=== PATIENT | female | born 1990 | race Asian ===

== ENCOUNTER → 2018-06-21 | Outpatient (CLI) | payer OTHER | END | disposition home or self-care (01) | LOC: C.LAB1850 09:57 | PROVIDERS: ATTEND Obstetrics & Gynecology | DX: Z34.02 Encounter for supervision of normal first pregnancy, second trimester (principal) ==

== ENCOUNTER 2018-11-27 02:53 | Inpatient (IN) ==
[2018-11-27] MEDS ORDERED: OXYTOCIN 30 UNITS/500 ML BAG IV PRN ×3 (03:53→15:49)
[2018-11-27] MEDS ORDERED: LACTATED RINGER'S 1,000 ML IV PRN ×3 (03:53→10:42)
[2018-11-27 04:12] LABS: Hematocrit (blood only) 32.8 % (37-47); Hemoglobin 10.6 g/dL (12.0-16.0); Mean Corpuscular Volume 88.6 fL (80-100); Mean Platelet Volume 9.9 fL (7.4-10.4); Platelet Count 230 K/uL (130-400); RDW Coefficient of Variation 13.6 % (11.5-14.5); RDW Standard Deviation 43.4 fL (36.4-46.3); White Blood Count 8.09 K/uL (4.8-10.8)
[2018-11-27 04:57] LABS: Mean Corpuscular Hgb Conc 32.3 g/dL (32-36)
--- NOTE | 2018-11-27 06:32 | History & Physical Report ---
Date of Service November 27, 2018 Assessment & Plan (1) Supervision of normal intrauterine in primigravida: -Patient observed for several hours with spontaneous rupture of membranes , no regular contractions. -Tracing is reassuring -We will initiate Pitocin per induction protocol -Anticipate vaginal delivery History of Present Illness Chief Complaint: Spontaneous rupture of membranes Primary Care Provider: Roverto Gardner DO The patient is a 28-year-old 1 para 0 with an EDC of 02 December at 39+ weeks gestational age who presents with spontaneous rupture membranes. Patient states membranes ruptured at approximately 0230 hrs. on day of admission. She describes the fluid is clear. She denies contractions. The patient has had a benign course. Her blood type is A+, antibody negative, rubella immune , hepatitis B negative, she had a negative cell free DNA screening, she had a normal 1 hour Glucola x2, and she had a negative third trimester beta strep culture. Allergies Allergy/AdvReac Type Severity Reaction Status Date / Time No Known Allergies Allergy Unverified 11/27/18 03:21 Home Medications Home Medications Medication Instructions Recorded Confirmed Type vit-iron fum-folic ac 1 tab PO DAILY 11/27/18 11/27/18 History [ Vitamin] Patient History Medical History No significant past medical history Social History marital status: Current Living Situation: Spouse Other Information That Helps Us Care for You: No Feels Safe at Home: Yes Safety Concerns: Feels Safe At This Time Smoking Status: Never smoker Second Hand Exposure: No Hx Alcohol Use: No Hx Substance Use: No Beliefs That Will Affect Care: None Preferred Language: Yi Communication Ability: Effective 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 Physical Exam 2 Vital Signs (Past 24 Hours): Last Vital Signs Temp 36.8 C 11/27/18 06:18 Pulse 74 11/27/18 06:18 Resp 18 11/27/18 06:18 BP 106/64 11/27/18 06:18 Constitutional: WD/WN, vitals as above Respiratory: Auscultation: lungs clear to auscultation bilaterally Cardiovascular: RRR, no murmur, no edema Extremities: no calf tenderness Gastrointestinal (Abdomen): Gravid, vertex, positive heart tones, no palpable contractions, estimated weight of 6-1/2 pounds Genitourinary: Manual OB Exam: + cervical dilation 2 cm, + cervical effacement 90%, + station -1 and + amniotic fluid clear OB Exam Monitor Tracing: + external FHT monitor used and + category I
[2018-11-27] MEDS: LACTATED RINGER'S 1,000 ML IV SCH ×2 (06:51→09:35)
[2018-11-27] MEDS ORDERED: BUPIVACAINE 0.25% 30 ML VIAL ONE (08:48)
[2018-11-27] MEDS ORDERED: ePHEDrine sulfate 50 MG/ML AMP ONE (08:49)
[2018-11-27] MEDS ORDERED: fentaNYL citrate 100 MCG/2 ML VIAL ONE (08:49)
[2018-11-27] MEDS ORDERED: fentaNYL 2MCG/ML ROPIV 1.25MG/ML 100 ML BAG EPI ONE (08:50)
[2018-11-27] MEDS ORDERED: LIDOCAINE HCL 2% MPF (LOCAL) 5 ML VIAL INFIL ONE (09:36)
--- NOTE | 2018-11-27 10:40 | Anesthesiology Consultation ---
Date of Service November 27, 2018 Assessment & Plan Chart Review Chart Review: Acceptable Risk for Surgery Consults Requested none ASA [id number] Proposed Anesthesia Anesthesia Type: Labor Epidural Risk / Benefits Reviewed With: PT / POA / Parent / Guardian History Height/Weight Height: 5 ft 2 in Weight: 64.864 kg Allergies Allergy/AdvReac Type Severity Reaction Status Date / Time No Known Allergies Allergy Unverified 11/27/18 03:21 Medications Home Medications Medication Instructions Recorded Confirmed Last Taken vit-iron fum-folic ac 1 tab PO DAILY 11/27/18 11/27/18 11/26/18 20:00 [ Vitamin] Active Medications Generic Name Dose Route Start Last Admin Trade Name Freq PRN Reason Stop Dose Admin Lactated Ringer's 1,000 mls @ 125 mls/hr 11/27/18 04:00 11/27/18 09:49 Lr IV 11/29/18 03:59 125 mls/hr .Q8H JANNET Infusion Oxytocin 30 units in 500 mls @ 7 mls/hr 11/27/18 06:23 11/27/18 08:34 Pitocin IV 11/29/18 06:22 0.42 units/hr .Q24H PRN 7 mls/hr Labor Induction/Augmentation Titration Protocol 0.42 UNITS/HR Past Medical History Medical History No significant past medical history Social History Smoking Status: Never smoker Hx Alcohol Use: No Hx Substance Use: No substance use type: does not use Physical Exam Vital Signs Last Vital Signs Temp 36.5 C 11/27/18 08:49 Pulse 90 11/27/18 10:36 Resp 20 11/27/18 08:49 BP 101/57 L 11/27/18 10:25 Pulse Ox 100 11/27/18 10:36 Testing Laboratory Results 11/27/18 04:02
[2018-11-27] MEDS ORDERED: NALOXONE HCL 1 MG in SODIUM CHLORIDE 0.9% 1000ML 1,000 ML IV PRN (10:42)
[2018-11-27] MEDS ORDERED: NALOXONE HCL 0.4 MG/1 ML VIAL/CARP IV PRN (10:42)
[2018-11-27] MEDS ORDERED: ONDANSETRON INJ 2 MG/ML 2 ML VIAL IV PRN (10:42)
[2018-11-27] MEDS ORDERED: fentaNYL 2MCG/ML ROPIV 1.25MG/ML 100 ML BAG EPI PRN (10:42)
[2018-11-27] MEDS ORDERED: ePHEDrine sulfate 50 MG/ML AMP IV PRN (10:42)
[2018-11-27] MEDS ORDERED: NALBUPHINE HCL INJ 10 MG/ML AMP IV PRN (10:42)
[2018-11-27] MEDS ORDERED: DiphenhydrAMINE HCL 50 MG/ML VIAL IV PRN (10:42)
[2018-11-27] MEDS ORDERED: ACETAMINOPHEN W/CODEINE #3 1 TAB PO PRN (15:49)
[2018-11-27] MEDS ORDERED: SUPERCREAM 0.870% 15 GM JAR EXT PRN (15:49)
[2018-11-27] MEDS ORDERED: HYDROCORTISONE ACETATE 25 MG SUPP PR PRN (15:49)
[2018-11-27] MEDS ORDERED: DIPHTHERIA/TETANUS/PERTUSSIS 0.5 ML SYR/VIAL IM ONE (15:49)
[2018-11-27] MEDS ORDERED: ACETAMINOPHEN 325 MG TAB PO PRN (15:49)
[2018-11-27] MEDS ORDERED: BENZOCAINE 20% AER SPR 82.5 GM CAN EXT PRN (15:49)
[2018-11-27 15:53] LABS: Base Excess Cord Venous Blood -0.5 mEq/L (-7.7-1.9); Cord Venous Blood HCO3 25 mmol/L (18.4-26.8); Cord Venous Blood PCO2 46 mmHg (30.4-57.2); Cord Venous Blood PO2 25 mmHg (14.1-43.3); Cord Venous Blood pH 7.36 (7.20-7.44); O2 Saturation Cord Venous Bld < 60.0 % (<68)
--- NOTE | 2018-11-27 16:57 | Anesthesia Procedure Note ---
Date of Service November 27, 2018 Anesthesia Post Epidural Note Vital Signs Vital Signs: Temp Pulse Resp BP Pulse Ox 11/27/18 16:50 129 H 96/68 L 11/27/18 16:35 108 H 20 91/58 L 11/27/18 16:20 95 H 89/55 L 11/27/18 16:05 106 H 20 104/44 L 11/27/18 15:55 112 H 82/48 L 11/27/18 15:50 18 11/27/18 15:35 71 18 90/55 L 11/27/18 15:20 79 18 102/59 L 11/27/18 15:05 81 18 98/58 L 11/27/18 14:55 80 87/50 L 11/27/18 14:46 92 H 92 11/27/18 14:41 100 H 99 11/27/18 14:40 84 103/57 L 11/27/18 14:36 80 97 11/27/18 14:31 76 97 11/27/18 14:27 81 100/55 L 11/27/18 14:26 91 H 96 11/27/18 14:21 89 97 11/27/18 14:16 106 H 99 11/27/18 14:11 89 96 11/27/18 14:10 106 H 151/125 H 11/27/18 14:06 80 96 11/27/18 14:01 89 97 11/27/18 14:00 11/27/18 13:56 78 108/53 L 98 11/27/18 13:51 77 97 11/27/18 13:48 98 H 91 11/27/18 13:46 77 97 11/27/18 13:41 104 H 98 11/27/18 13:40 79 99/57 L 11/27/18 13:36 98 H 98 11/27/18 13:31 109 H 99 11/27/18 13:30 20 11/27/18 13:26 82 110/53 L 99 11/27/18 13:21 78 99 11/27/18 13:16 90 93 11/27/18 13:11 81 98 11/27/18 13:09 121 H 105/53 L 11/27/18 13:08 85 91 11/27/18 13:06 92 H 99 11/27/18 13:01 82 99 11/27/18 13:00 20 11/27/18 12:57 37.1 C 20 11/27/18 12:56 83 104/57 L 99 11/27/18 12:51 84 99 11/27/18 12:47 87 92 11/27/18 12:46 87 96 11/27/18 12:41 79 99 11/27/18 12:40 89 114/57 L 11/27/18 12:36 114 H 100 11/27/18 12:30 86 20 99 11/27/18 12:26 103 H 99 11/27/18 12:25 81 104/56 L 11/27/18 12:21 85 99 11/27/18 12:16 99 H 100 11/27/18 12:06 89 100 11/27/18 12:01 83 100 11/27/18 12:00 83 20 107/63 99 11/27/18 11:56 85 99 11/27/18 11:55 88 104/61 11/27/18 11:51 90 100 11/27/18 11:46 89 99 11/27/18 11:41 83 104/57 L 99 11/27/18 11:36 85 100 11/27/18 11:31 82 20 100 11/27/18 11:30 20 11/27/18 11:26 84 100 11/27/18 11:25 79 101/59 L 11/27/18 11:21 83 100 11/27/18 11:16 80 100 11/27/18 11:15 20 11/27/18 11:11 80 99 11/27/18 11:10 81 106/61 11/27/18 11:06 82 100 11/27/18 11:01 86 99 11/27/18 11:00 36.6 C 20 11/27/18 10:56 93 H 98/53 L 100 11/27/18 10:51 93 H 100 11/27/18 10:46 84 99 11/27/18 10:41 85 20 99 11/27/18 10:40 83 109/59 L 11/27/18 10:36 90 100 11/27/18 10:31 86 20 100 11/27/18 10:26 88 99 11/27/18 10:25 86 101/57 L 11/27/18 10:21 92 H 99 11/27/18 10:16 92 H 20 99 11/27/18 10:11 93 H 100 11/27/18 10:10 86 101/58 L 11/27/18 10:06 92 H 99 11/27/18 10:01 94 H 20 99 11/27/18 09:56 90 100 11/27/18 09:54 88 101/61 11/27/18 09:52 95 H 104/63 11/27/18 09:51 91 H 99 11/27/18 09:50 89 100/60 11/27/18 09:48 86 105/63 11/27/18 09:46 94 H 20 101/66 99 11/27/18 09:44 88 99/57 L 11/27/18 09:42 88 106/58 L 11/27/18 09:41 96 H 99 11/27/18 09:40 87 98/56 L 11/27/18 09:38 90 20 107/60 11/27/18 09:36 93 H 104/58 L 100 11/27/18 09:34 86 98/55 L 11/27/18 09:32 100 H 107/58 L 11/27/18 09:31 100 H 100 11/27/18 09:30 88 98/58 L 11/27/18 09:28 86 105/62 11/27/18 09:26 92 H 20 101/62 100 11/27/18 09:23 74 99/60 L 11/27/18 09:21 79 100 11/27/18 09:16 83 99 11/27/18 09:11 82 95 11/27/18 09:10 83 94 11/27/18 09:06 80 96 11/27/18 09:01 82 99 11/27/18 09:00 82 92 11/27/18 08:56 78 97 11/27/18 08:52 84 94 11/27/18 08:51 85 94 11/27/18 08:49 36.5 C 20 11/27/18 08:48 81 103/65 11/27/18 07:59 77 100/64 11/27/18 06:55 36.9 C 83 20 107/68 11/27/18 06:18 36.8 C 74 18 106/64 11/27/18 05:32 36.3 C L 18 11/27/18 03:13 36.5 C 84 18 114/72 Pain Intensity Abdomen: Pain Intensity: 3 Notes Mental Status: alert / awake / arousable and participated in evaluation Nausea / Vomiting: adequately controlled Pain: adequately controlled Airway Patency, RR, SpO2: stable & adequate BP & HR: stable & adequate Hydration State: stable & adequate Neuraxial Anesthesia: was administered and sensory block is resolving Anesthetic Complications: no major complications apparent and Pt Satisfied with anesthetic care Epidural: Removed without complications and With tip intact
--- NOTE | 2018-11-27 19:28 | Delivery Summary ---
DATE OF OPERATION: 11/27/2018 FINDINGS: Viable female with Apgars of 8 and 9. Baby delivered over midline episiotomy with left sulcus tear and third-degree extension by vacuum extraction for maternal exhaustion. Cord gases, cord blood samples obtained. Placenta delivered spontaneously. Lacerations repaired with 4-0, 2-0 Vicryl in routine fashion. Estimated blood loss was 300 mL LABOR NOTE: The patient is a 28-year-old 1, para 0 with an EDC of 12/02/2018 at 39 and 1+ weeks gestational age who presented to Labor and Delivery with spontaneous rupture of membranes. The patient states membranes ruptured at approximately 0230 on the day of admission. She described the fluid as clear. She denied contractions or vaginal bleeding. The patient has had a benign course. Her blood type is A positive, antibody negative, rubella immune, hepatitis B negative. She had a negative cell free DNA screening, she had normal 1 hour Glucola x2 and a negative third trimester beta strep culture. Upon admission, the patient was noted to be 3 cm dilated, 90% effaced and -2 station. She was observed for several hours with no uterine activity appreciated. Pitocin augmentation was initiated to start labor. Shortly thereafter, the patient became uncomfortable and anesthesia was consulted and an epidural was placed. Over the next 8 hours, the patient progressed to full dilatation and began her second stage. The patient pushed for two and a half hours bringing the vertex down to a +3 station. At this point, she was exhausted and could no longer push effectively. Verbal consent was obtained for a vacuum delivery. Bladder was drained of any residual urine. Vacuum was placed and over the next 2 contractions with 1 pop off, the baby was delivered over a midline episiotomy. Cord was clamped and cut. Cord gases, cord blood samples obtained. Placenta was delivered spontaneously. Inspection of the perineum showed a left sulcus tear in the vagina as well as a third-degree extension. The edges of the sphincter muscle were isolated and reapproximated with 3 [id number] 2-0 Vicryl stitches. The sulcus tear was closed with a running 4-0 Vicryl and then the episiotomy was closed with 4-0 and 2-0 Vicryl in routine fashion. Estimated blood loss for the procedure was 300 mL. Sponge and needle count were correct. I attest to the content of the Intraoperative Record and any orders documented therein. Any exception s are noted below.
[2018-11-27] MEDS: DOCUSATE SODIUM 100 MG CAP PO SCH (20:47)
[2018-11-27] MEDS: IBUPROFEN 600 MG TAB PO PRN (20:48)
[2018-11-28] MEDS: IBUPROFEN 600 MG TAB PO PRN ×5 (01:04→23:54)
[2018-11-28 06:03] LABS: Hematocrit (blood only) 27.5 % (37-47); Mean Corpuscular Hgb Conc 32.7 g/dL (32-36); Mean Corpuscular Volume 87.3 fL (80-100); Platelet Count 199 K/uL (130-400); RDW Standard Deviation 43.6 fL (36.4-46.3); Red Blood Count 3.15 M/uL (4.2-5.4); White Blood Count 14.51 K/uL (4.8-10.8)
--- NOTE | 2018-11-28 06:14 | Obstetrical Progress Note ---
Date of Service <Handy Henao MD - Last Filed: 11/28/18 06:13> November 28, 2018 Assessment & Plan <Handy Henao MD - Last Filed: 11/28/18 06:13> (1) Normal spontaneous vaginal delivery: Alesia Marshall is a 28yo G1PO who presented with SROM now PPD#1 after . - She is A+, AB-, RI, Hep B- - Having some trouble with breast feeding latch, + nurse counseling - Feels well today. Eating well, voiding well. Encourage ambulation. - Pain well controlled with ibuprofen 600mg Q4H PRN. - Routine post care - Anticipate discharge on PPD#2 to 6 week followup with . <Rex Moreno Jr, MD, FACOG - Last Filed: 11/28/18 07:02> (1) Normal spontaneous vaginal delivery: Subjective <Handy Henao MD - Last Filed: 11/28/18 06:13> Ambulation: limited ambulation (PPD#1, has mostly been resting in bed. Up to bathroom OK.) Voiding: no voiding problems Passing Gas:: No Diet Tolerance:: regular diet Lochia:: Moderate Feeding Type:: breast feeding (Having difficulty with latch) Current Pain Level(1-10): 5 (improved with motrin) Review of Systems Denies fever, chills, sweats Denies shortness of breath, difficulty breathing, chest pain, palpitations, chest pressure. Denies breast pain. Denies dysuria. Denies headache. Physical Exam <Handy Henao MD - Last Filed: 11/28/18 06:13> Vital Signs (Past 24 Hours) Last Vital Signs Temp 36.8 C 11/28/18 03:30 Pulse 78 11/28/18 03:30 Resp 18 11/28/18 03:30 BP 97/63 L 11/28/18 03:30 Pulse Ox 92 11/27/18 14:46 General: Alert, oriented. No acute distress. Cardiac: Regular rate and rhythm, no murmurs/rubs/gallops. Respiratory: Clear to auscultation anterior and posteriorly, no wheezes/rales/ rhonchi. No increased work of breathing. Symmetrical chest rise. No respiratory distress. Abdomen: Soft, nontender, nondistended. Bowel sounds present. Uterus: Uterine fundus firm, palpable 2 cm below umbilicus. Lower Extremities: No lower extremity edema or swelling. No deep calf pain. Jaspal's negative bilaterally Results & Data <Handy Henao MD - Last Filed: 11/28/18 06:13> Laboratory Results 11/28/18 11/27/18 Range/Units 05:55 14:47 WBC 14.51 H (4.8-10.8) K/uL RBC 3.15 L (4.2-5.4) M/uL Hgb 9.0 L (12.0-16.0) g/dL Hct 27.5 L (37-47) % MCV 87.3 (80-100) fL MCH 28.6 (25-34) pg MCHC 32.7 (32-36) g/dL RDW Std Deviation 43.6 (36.4-46.3) fL RDW Coeff of [place]ah 14.0 (11.5-14.5) % Plt Count 199 (130-400) K/uL MPV 10.0 (7.4-10.4) fL Cord VBG pH 7.36 (7.20-7.44) Cord VBG pCO2 46 (30.4-57.2) mmHg Cord VBG pO2 25 (14.1-43.3) mmHg Cord VBG HCO3 25 (18.4-26.8) mmol/L Cord VBG Base Excess -0.5 (-7.7-1.9) mEq/L Cord VBG O2 Sat < 60.0 (<68) % Barometric Pressure 730.5 mm/Hg Blood Gas Comments SORIA Medications Administered Current Inpatient Medications Acetaminophen (Tylenol) 650 mg PO Q6H PRN PRN Reason: Pain/KIRBY/Fever Stop: 12/27/18 15:48 Acetaminophen/Codeine Phosphate (Tylenol W/Codeine #3) 1 - 2 tab PO Q4H PRN PRN Reason: Pain not controlled with... Stop: 12/27/18 15:48 Benzocaine (Dermoplast Pain Relieving [place]) 1 appln EXT PRN PRN PRN Reason: Perineal Discomfort Stop: 12/27/18 15:48 Bisacodyl (Dulcolax) 5 mg PO 2000 JANNET Stop: 11/28/18 20:01 Cocaine HCl (Supercream 0.870%) 1 gm EXT BID PRN PRN Reason: Hemorrhoidal Inflammation Stop: 12/11/18 15:48 Docusate Sodium (Colace) 100 mg PO BID [facility] Stop: 12/27/18 20:59 Last Admin: 11/27/18 20:47 Dose: 100 mg Ferrous Sulfate (Feosol) 325 mg PO QAM JANNET Stop: 12/28/18 08:59 Hydrocortisone (Anusol Hc) 25 mg [place] BID PRN PRN Reason: Hemorrhoidal Inflammation Stop: 12/27/18 15:48 Oxytocin (Pitocin) 30 units in 500 mls @ 333.333 mls/hr IV .Q1H30M PRN; Protocol PRN Reason: BLEEDING CONTROL Stop: 12/27/18 15:48 Ibuprofen (Motrin) 600 mg PO Q4H PRN PRN Reason: Pain/KIRBY/Cramping/Fever Stop: 12/27/18 15:48 Last Admin: 11/28/18 01:04 Dose: 600 mg Prenat Multivit/Molecular Biology Director/Iron/Folic Ac ( Vitamin) 1 tab PO QAM [facility] Stop: 12/28/18 08:59 <Rex Moreno Jr, MD, FACOG - Last Filed: 11/28/18 07:02> Co-Signing Physician Notes Resident Physician Supervision Note: I was present with Dr. Henao during the history and exam. I discussed the case with the resident and agree with the findings and plan as documented in the note. Any exceptions or clarifications are listed here: [None] Documented By: Rex Moreno Jr, MD, FACOG Resident Activity Tracking <Handy Henao MD - Last Filed: 11/28/18 06:13> Resident Involvement: Resident Care Provided Care Provided: Adult Hospital Medicine
[2018-11-28] MEDS: DOCUSATE SODIUM 100 MG CAP PO SCH ×2 (07:44→20:16)
[2018-11-28] MEDS: FERROUS SULFATE 325 MG TAB PO SCH (07:48)
[2018-11-28] MEDS: PRENATAL VITAMIN 1 TAB PO SCH (07:49)
[2018-11-28] MEDS ORDERED: BISACODYL 5 MG TABEC PO SCH (20:00)
[2018-11-29] MEDS: IBUPROFEN 600 MG TAB PO PRN ×2 (06:07→14:07)
--- NOTE | 2018-11-29 06:09 | Obstetrical Progress Note ---
Date of Service <Handy Henao MD - Last Filed: 11/29/18 06:14> November 29, 2018 Assessment & Plan <Handy Henao MD - Last Filed: 11/29/18 06:14> (1) Normal spontaneous vaginal delivery: Alesia Marshall is a 28yo G1PO who presented with SROM now PPD#2 after . - She is A+, AB-, RI, Hep B- - Continues to have a little trouble with breast feeding, but improved from yesterday. Not needing formula supplementation. - Feels well today. Eating well, voiding well. Ambulating. - Pain well controlled with ibuprofen 600mg Q4H PRN. - Routine post care - Will have [address] Moreno after discharge Subjective <Handy Henao MD - Last Filed: 11/29/18 06:14> Ambulation: ambulating normally Voiding: no voiding problems Passing Gas:: Yes Diet Tolerance:: regular diet Lochia:: Small Feeding Type:: breast feeding (some difficulty, improved from yesterday) Current Pain Level(1-10): 5 (improves with tylenol) Feels ready to go home Review of Systems Denies fever, chills, sweats Denies shortness of breath, difficulty breathing, chest pain, palpitations, chest pressure. Denies breast pain. Denies dysuria. Denies headache. Physical Exam <Handy Henao MD - Last Filed: 11/29/18 06:14> Vital Signs (Past 24 Hours) Last Vital Signs Temp 37.1 C 11/28/18 23:25 Pulse 90 11/28/18 23:25 Resp 16 11/28/18 23:25 BP 97/62 L 11/28/18 23:25 Pulse Ox 97 11/28/18 23:25 General: Alert, oriented. No acute distress. Cardiac: Regular rate and rhythm, no murmurs/rubs/gallops. Respiratory: Clear to auscultation anterior and posteriorly, no wheezes/rales/ rhonchi. No increased work of breathing. Symmetrical chest rise. No respiratory distress. Abdomen: Soft, nontender, nondistended. Bowel sounds present. Uterus: Uterine fundus firm, palpable ~2cm below umbilicus. Lower Extremities: No lower extremity edema or swelling. No deep calf pain. Jaspal's negative bilaterally. Results & Data <Handy Henao MD - Last Filed: 11/29/18 06:14> Medications Administered Current Inpatient Medications Acetaminophen (Tylenol) 650 mg PO Q6H PRN PRN Reason: Pain/KIRBY/Fever Stop: 12/27/18 15:48 Acetaminophen/Codeine Phosphate (Tylenol W/Codeine #3) 1 - 2 tab PO Q4H PRN PRN Reason: Pain not controlled with... Stop: 12/27/18 15:48 Benzocaine (Dermoplast Pain Relieving [place]) 1 appln EXT PRN PRN PRN Reason: Perineal Discomfort Stop: 12/27/18 15:48 Cocaine HCl (Supercream 0.870%) 1 gm EXT BID PRN PRN Reason: Hemorrhoidal Inflammation Stop: 12/11/18 15:48 Docusate Sodium (Colace) 100 mg PO BID [facility] Stop: 12/27/18 20:59 Last Admin: 11/28/18 20:16 Dose: 100 mg Ferrous Sulfate (Feosol) 325 mg PO QAM [facility] Stop: 12/28/18 08:59 Last Admin: 11/28/18 07:48 Dose: 325 mg Hydrocortisone (Anusol Hc) 25 mg [place] BID PRN PRN Reason: Hemorrhoidal Inflammation Stop: 12/27/18 15:48 Oxytocin (Pitocin) 30 units in 500 mls @ 333.333 mls/hr IV .Q1H30M PRN; Protocol PRN Reason: BLEEDING CONTROL Stop: 12/27/18 15:48 Ibuprofen (Motrin) 600 mg PO Q4H PRN PRN Reason: Pain/KIRBY/Cramping/Fever Stop: 12/27/18 15:48 Last Admin: 11/29/18 06:07 Dose: 600 mg Prenat Multivit/[place]/Iron/Folic Ac ( Vitamin) 1 tab PO QAM [facility] Stop: 12/28/18 08:59 Last Admin: 11/28/18 07:49 Dose: 1 tab <Leah Abel MD, FACOG - Last Filed: 11/29/18 07:16> Co-Signing Physician Notes Resident Physician Supervision Note: I interviewed and examined the patient. Discussed with Dr. Henao and agree with findings and plan as documented in the note. Any exceptions or clarifications are listed here: [None] Documented By: Leah Abel MD, FACOG Resident Activity Tracking <Handy Henao MD - Last Filed: 11/29/18 06:14> Resident Involvement: Resident Care Provided Care Provided: Adult Hospital Medicine
[2018-11-29] MEDS: PRENATAL VITAMIN 1 TAB PO SCH (09:16)
[2018-11-29] MEDS: FERROUS SULFATE 325 MG TAB PO SCH (09:16)
[2018-11-29] MEDS: DOCUSATE SODIUM 100 MG CAP PO SCH (09:16)
[2018-11-29 10:27] LABS: Hematocrit (blood only) 26.4 % (37-47); Hemoglobin 8.5 g/dL (12.0-16.0)
--- NOTE | 2018-11-29 22:01 | Discharge Summary ---
ADMITTING DIAGNOSES: 1. Term . 2. Spontaneous rupture of membranes. DISCHARGE DIAGNOSES: 1. Term . 2. Maternal exhaustion. PROCEDURES PERFORMED: 1. Vacuum assisted vaginal delivery. 2. Repair of third-degree laceration. ADMISSION HISTORY: The patient is a 28-year-old 1, para 0 with an EDC of 12/02/2018 at 39+ weeks gestational age, who presented to labor and delivery with spontaneous membranes rupturing. Patient states membranes ruptured at approximately 0230 hours on the day of admission. She described the fluid as clear. She denied contractions. The patient has had a benign course. Her blood type is A positive, antibody negative, rubella immune, hepatitis B negative. She had a negative cell free DNA screening. She had a normal 1 hour Glucola x2, and a negative third trimester beta strep culture. HOSPITAL COURSE: Upon admission, the patient was observed for active labor. She had no regular contractions. Cervix was 2 cm dilated, 90% effaced, and -1 station. Tracing was category 1. Because of the lack of contractions with rupture of membranes, Pitocin augmentation was initiated. Patient progressed into a regular labor pattern. Anesthesia was consulted, and epidural was placed. The patient progressed to full dilatation and began her second stage. Approximately 2-1/2 hours after pushing, the patient could no longer effectively push secondary to exhaustion. The vertex was on the perineum. After obtaining verbal consent, over the next 2 contractions, the baby was delivered over a midline episiotomy with a third degree extension by vacuum extraction. Cord was clamped and cut. Cord gases and cord blood samples obtained. Placenta delivered spontaneously. The third degree laceration was repaired by reapproximating the external sphincter muscle with 3 [id number] 2-0 Vicryl sutures. The episiotomy itself was closed with 4-0 and 2-0 Vicryl. , the patient did well. H and H came back at 9.0 and 27.5. The patient was not having any signs of anemia. She was discharged home on the second day with the routine discharge instructions. She will follow up in the office in 6 weeks' time for a postoperative check, but as always she has been instructed to call with any questions, problems, or difficulties.
== END 2018-11-29 14:45 | disposition home or self-care (01) | DRG 768 ==
LOC: OPB 02:53 → 4S1 02:58 → 4S2 18:00